=== PATIENT | female | born 1975 | race Caucasian/White ===

== ENCOUNTER → 2024-09-08 08:47 | Outpatient (REF) | payer BC, MEDICARE, SELFPAY | LOC: RAD 08:47 | PROVIDERS: ATTENDING PHYSICIAN Internal Medicine Rheumatology; FAMILY PHYSICIAN Family Medicine | DX: M25.579 Pain in unspecified ankle and joints of unspecified foot (principal); M25.549 Pain in joints of unspecified hand | CPT/HCPCS: 76882 ==